=== PATIENT | female | born 1985 | race Caucasian/White ===

== ENCOUNTER → 2020-10-18 08:06 | Outpatient (CLI) | payer OTHER, SELFPAY ==
[2020-10-18 09:22] LABS: Cholesterol 160 mg/dL (140-199); HDL Cholesterol 60 mg/dL (40-60); LDL Cholesterol Calculated 88 mg/dL (<100); Triglycerides 62 mg/dL (35-150)
[2020-10-18 09:23] LABS: Hemoglobin A1C% w Est Avg Glu 5.6 % (4.0-6.0)
[2020-10-18 09:54] LABS: TSH w/ Reflex to FT4 2.28 uIU/mL (0.47-4.68)
== END ==
PROVIDERS: PCP Family Medicine; Referring Provider Family Medicine; Visit Provider Family Medicine
DX: Z00.00 Encounter for general adult medical examination without abnormal findings (principal)
CPT/HCPCS: 36415; 80061; 83036; 84443

== ENCOUNTER → 2020-10-30 08:21 | Outpatient (CLI) | payer OTHER, SELFPAY ==
[2020-11-01 17:36] LABS: ANA Screen, IFA Positive (.)
== END ==
PROVIDERS: PCP Family Medicine; Referring Provider Dermatology; Visit Provider Dermatology
DX: M32.9 Systemic lupus erythematosus, unspecified (principal); L20.9 Atopic dermatitis, unspecified
CPT/HCPCS: 36415; 86038

== ENCOUNTER → 2020-12-02 15:12 | Outpatient (CLI) | payer OTHER, SELFPAY ==
[2020-12-02 16:03] LABS: Erythrocyte Sedimentation Rate 5 MM/HR (0-20)
[2020-12-02 19:24] LABS: C-Reactive Protein Quant < 0.5 mg/dL (<1.0)
[2020-12-03 18:51] LABS: ANA Screen, IFA Positive (.)
== END ==
PROVIDERS: PCP Family Medicine; Referring Provider Dermatology; Visit Provider Dermatology
DX: L56.8 Other specified acute skin changes due to ultraviolet radiation (principal); M25.50 Pain in unspecified joint
CPT/HCPCS: 36415; 85651; 86038; 86140

== ENCOUNTER → 2021-10-20 07:42 | Outpatient (CLI) | payer OTHER, SELFPAY ==
--- NOTE | 2021-10-20 | DI.US.S_ITS ---
PROCEDURE: US OB <= 14 WEEKS FETUS INDICATIONS: SIZE AND DATES OUTSIDE/PRIOR DATING DATA: Last menstrual period (LMP): August 19, 2021 LMP-based estimated date of delivery (TIA): May 26, 2022 First dating scan (date and location): October 20, 2021, [facility] Estimated date of delivery (TIA) from first dating scan: May 24, 2022 The calculations are made using the ultrasound TIA of May 24, 2022. TECHNIQUE: Real-time scanning was performed of the fetus and maternal pelvic organs, with image documentation. Endovaginal scanning was also performed to better visualize the fetus and maternal ovaries. COMPARISON: None. FINDINGS: Embryo: Single living intrauterine identified. Yolk sac and pole are identified. Leona-rump length measures 2.4 centimeters corresponding to ultrasound estimated gestational age of 9 weeks 1 day. Small 3.2 x 0.8 x 0.3 centimeter perigestational bleed. Heart rate: 169 beats per minute Maternal organs: Probable right corpus luteal cyst. IMPRESSION: 1. Single living intrauterine with ultrasound estimated gestational age of 9 weeks 1 day corresponding to ultrasound TIA of May 24, 2022. 2. Small 3.2 x 0.8 x 0.3 centimeter perigestational bleed. 3. Probable right corpus luteal cyst. Dictated by: Kim Martin MD, PhD on 10/20/2021 at 15:39 Approved by: Kim Martin MD, PhD on 10/20/2021 at 15:41
== END ==
PROVIDERS: PCP Student in an Organized Health Care Education/Training Program; Referring Provider Student in an Organized Health Care Education/Training Program; Visit Provider Student in an Organized Health Care Education/Training Program
DX: Z36.87 Encounter for antenatal screening for uncertain dates (principal); O20.9 Hemorrhage in early pregnancy, unspecified; Z3A.09 9 weeks gestation of pregnancy
CPT/HCPCS: 76801; 76817

== ENCOUNTER 2022-05-26 04:23 | Inpatient (IN) | payer OTHER, SELFPAY ==
[2022-05-26 04:28] VITALS: BP 119/78
--- NOTE | 2022-05-26 04:42 | P.HPOB_ITS ---
OB HPI Date/Time Date of admission: 05/26/22 Date Patient Seen: 05/26/22 Time Patient Seen: 04:43 History of Present Condition Chief complaint: waterbroke : 4 Para: 3 Estimated Date of Delivery: 05/26/22 Estimated Gestational Age (weeks): 40.0 Narrative: Steph Fabian is a 36 year old female here for evaluation of labor. Has been tanisha every 10-15 minutes since midnight. Had a strong contra ction and large gush of clear fluid right at 4am. Scant bloody show. Feeling comfortable, coping well. Contractions have not intensified since SROM. Uncomplicated PN care w/ CNM, transferred in from at 22wks. Desires low intervention . Both of her parents are present because her is home sick. History of Present care: good care, initiated at week # (5), number of visits (11) and pounds weight gain (35) Dating criteria: LMP confirmed by 1st trimester US Ultrasounds: normal 1st trimester US and normal mid trimester US Obstetrical complications: none Medical complications: none Preadmission Labs Blood type: A (+) positive -: Antibody screen: negative, GBS status: negative, HBsAG: negative, HIV: negative and RPR/VDLR: negative -: Chlamydia screen: not detected and Gonorrhea screen: not detected -: Rubella: immune and Varicella: immune HCT: 35.6 Cell-free DNA: Negative 1 hr GTT: 115 Prior (ies) History: 1: 06/20/2013, (vaginal delivery), Jocelynia, 40wks, 4 hr15 min labor, Epidural, Intact, Female, 7 lbs 11 oz, [place] 2: 02/10/2016, (vaginal delivery), Praneeth, 40wks, 5 hr20 min labor, Epidural, Intact, Male, 7 lbs 10 oz, [place] 3: 03/10/2019, (vaginal delivery), Jorge, 40wks, 5 hr30 min, Unmedicated, Intact, Male, 7 lbs 7 oz , [place] Evaluation Evaluation Baseline heart rate: 140 Variability: Moderate (11-25) monitor accelerations: Present Monitor Decelerations: Absent Contraction Frequency (minutes): 5 Uterine Contraction Intensity: Moderate Status: Category l Comments: CE deferred until contractions are stronger and more regular [facility] Medical History Allergic conjunctivitis Chicken pox Chronic low back pain (~2005) Eczema Foot pain (~2016) Shoulder pain Family History Grandmother Breast cancer Social History Smoking Status: Never smoker Meds Home Medications and Allergies Home Medications Medication Instructions Recorded Confirmed Type 19 05/26/22 05/26/22 History cholecalciferol (vitamin D3) 25 05/26/22 05/26/22 History mcg (1,000 unit) capsule (Vitamin D3) Allergies Allergy/AdvReac Type Severity Reaction Status Date / Time No Known Drug Allergies Allergy Verified 06/30/21 14:41 Review of Systems Review of Systems ROS: Yes All systems reviewed with the patient and are negative except as otherwise documented OB Exam Presentation: vertex Objective Labs Result Diagrams: 05/26/22 04:55 Assessment and Plan Assessment and Plan Assessment and Plan narrative: A: Term Multipara Early labor SROM x 1 hour without sx of infection No indication for GBS prophylaxis Cat I FHR P: Admit, routine orders. May switch to IA. Labor suppport PRN. Expectant management of SROM, anticipate active labor soon.
[2022-05-26 05:31] LABS: Add Manual Diff / Slide Review NO; Basophils Absolute Auto 100 /uL (0-100); Basophils Percent Auto 0.5 % (0-2); Eosinophils Absolute Auto 200 /uL (0-450); Eosinophils Percent Auto 1.4 % (2-4); Hematocrit 36.4 % (36-46); Lymphocytes Absolute Auto 2700 /uL (1100-4500); Lymphocytes Percent Auto 20.3 % (25-40); Mean Corpuscular Hemoglobin 25.6 PG (26-34); Mean Corpuscular Volume 77.5 fL (80-100); Monocytes Absolute Auto 800 /uL (0-900); Monocytes Percent Auto 6.4 % (3-14); Neutrophils Absolute Auto 9400 /uL (1500-7000); Neutrophils Percent Auto 71.4 % (50-75); Platelet Count 252 X10^3/uL (150-400); Red Blood Cell Count 4.69 X10^6/uL (4.0-5.2); Red Cell Distribution Width 14.4 % (11.6-14.8); White Blood Cell Count 13.2 X10^3/uL (4.5-11.0)
[2022-05-26 05:43] LABS: COVID19 -Nasal RAPID Negative (Negative)
--- NOTE | 2022-05-26 08:33 | PM.OBPRVD ---
Labor & Delivery Delivery date: 05/26/22 Intrapartal Events: None Cervical ripening method: none Induction method: none Delivery monitor: external FHT Route of delivery: Episiotomy description: None L&D Laceration Description: None Quantitative Blood Loss: 50 Anesthesia Type: None Narrative: Steph labored well without augmentation or anesthesia. Was presumed to be complete with spontaneous urge to push.Steady descent of vertex noted over 3 contractions w/ reassuring FHR by IA. NSVB of a vigorous baby girl in JOANS position over an intact vagina and perineum. The was no nuchal cord and the shoulders delivered without additional maneuvers. 30 units of pitocin in 500mL LR was started at 250mL/hr for AMTSL. After cessation of pulsation, the cord was double clamped by YOGI and cut by Steph. Cord blood hold sample was collected. Gentle cord traction and maternal push led to spontaneous, Schultze delivery of an apparently intatc placenta, membranes and 3VC. Fundus immediately firm and bleeding minimal. QBL 50mL. Both mother and baby stable and skin to skin as I left the room. Baby 1: Infant gender: Female Presentation: vertex Position: Left Occiput Anterior Placenta delivery description: Spontaneous Cord Vessel Description: 3 Vessels score (1 min): 9 score (5 min): 9 weight: 3.584 kg Plan for aftercare: Routine care
[2022-05-26] MEDS: KETOROLAC 30 MG/ML VIAL IV (08:56)
[2022-05-26] MEDS: ACETAMINOPHEN 325 MG TABLET 650 MG PO ×3 (08:57→22:31)
[2022-05-26] MEDS: IBUPROFEN 600 MG TABLET PO ×2 (16:09→22:31)
[2022-05-27] MEDS: ACETAMINOPHEN 325 MG TABLET 650 MG PO ×2 (04:45→10:30)
[2022-05-27] MEDS: IBUPROFEN 600 MG TABLET PO ×2 (04:45→10:30)
--- NOTE | 2022-05-27 07:03 | P.DS_ITS ---
Discharge Providers Provider Date of admission: 05/26/22 04:23 Discharge Date: 05/27/22 Primary care physician: Bertha Solis MD Consults: 05/27/22 08:32 Consult to Chinese Medicine Practitioner Routine Comment: Discharge provider: Destiney Mejia CNM Summary Hospital Course Date Patient Seen: 05/27/22 Diagnoses: O80 Hospital Course: PPD1- Stable s/p NSVB yesterday with no lacerations. Ambulating, voiding, and breast feeding independently. Tolerating a general diet. Pain well controlled with ibuprofen and Tylenol. Peripartum Data Delivery Method: Natural Vaginal Laceration Description: None Episiotomy description: None 1: Gender: Female Disposition of : home Status at Discharge Cognitive/behavioral status at discharge: oriented and calm Functional status at discharge: independent ambulation Overall status at discharge: patient is back to baseline Time Spent with Patient Time attestation: Total time spent providing and/or coordinating discharge services: Time spent: Less than 30 minutes Objective Labs Result Diagrams: 05/26/22 04:55 Labs: Laboratory Results - last 24 hr 05/26/22 04:55 Blood Type A Positive Antibody Screen Negative Exam Vital Signs (past 8 hours): BP 108/57mmhg, HR 85bpm, RR 16/min, T 97.7F Temporal Other: Fundus firm @ U-2, lochia scant, perineum intact. Discharge Plan Discharge Plan Patient Disposition: Home Discharge orders & Medications Prescriptions: New ibuprofen 600 mg Tablet 600 mg PO Q6HR PRN (Reason: Pain, Mild (1-3)) 14 Days Qty: 60 0RF Continued cholecalciferol (vitamin D3) [Vitamin D3] 25 mcg (1,000 unit) capsule Label Comments: Take 1 capsule by mouth once a day 19 Follow up/Referrals: Bertha Solis MD [Primary Care Provider] - Destiney Mejia CNM [[facility] [employer] Laboratory Director] - (Follow-up 06/08/22 @ 3:00pm by Telehealth Follow-up 07/08 @ 9:45am in office) Diet/Activity/Treatments Diet: Diet as Tolerated and Regular Activity: pelvic rest x 6 weeks Skin/Wound/Dressing Care Report to your healthcare provider any signs of infection, such as:: chills, fever, increased pain, unusual drainage and unusual redness Visit Report/Discharge Packet Instructions: DI for Depression Discharge Data Primary Care Provider: Bertha Solis
[2022-05-27 08:09] VITALS: BP 110/72; PULSE 84; RESP 17; TEMP 36.3
== END 2022-05-27 12:10 | disposition home or self-care (01) | DRG 807 ==
PROVIDERS: Admitting Provider Nurse Practitioner Obstetrics & Gynecology; PCP Student in an Organized Health Care Education/Training Program; Referring Provider Nurse Practitioner Obstetrics & Gynecology; Visit Provider Nurse Practitioner Obstetrics & Gynecology
DX: O80 Encounter for full-term uncomplicated delivery (principal); Z37.0 Single live birth; Z3A.40 40 weeks gestation of pregnancy
CPT/HCPCS: 36415; 59050; 85025; 86850; 86900; 86901; 87635; C9803; G0379; J1885; S3620

== ENCOUNTER → 2023-11-20 08:27 | Outpatient (CLI) | payer OTHER, SELFPAY ==
[2023-11-20 09:21] LABS: Add Manual Diff / Slide Review NO; Basophils Absolute Auto 0 /uL (0-100); Basophils Percent Auto 0.6 % (0-2); Eosinophils Absolute Auto 300 /uL (0-450); Eosinophils Percent Auto 3.7 % (2-4); Hematocrit 43.1 % (36-46); Hemoglobin 14.6 g/dL (12.0-16.0); Lymphocytes Absolute Auto 2800 /uL (1100-4500); Lymphocytes Percent Auto 34.1 % (25-40); Mean Corpuscular HGB Conc 33.8 % (30-36); Mean Corpuscular Hemoglobin 28.8 PG (26-34); Mean Corpuscular Volume 85.2 fL (80-100); Monocytes Absolute Auto 400 /uL (0-900); Neutrophils Absolute Auto 4700 /uL (1500-7000); Neutrophils Percent Auto 56.6 % (50-75); Platelet Count 303 X10^3/uL (150-400); Red Blood Cell Count 5.06 X10^6/uL (4.0-5.2); Red Cell Distribution Width 13.3 % (11.6-14.8); White Blood Cell Count 8.2 X10^3/uL (4.5-11.0)
[2023-11-20 09:44] LABS: Alanine Aminotransferase 18 IU/L (<35); Albumin 4.3 g/dL (3.5-5.0); Albumin Globulin Ratio 1.4 (1.0-2.8); Alkaline Phosphatase 72 U/L (38-126); Aspartate Aminotransferase 25 IU/L (14-36); BUN Creatinine Ratio 23.9 (6-22); Bilirubin Total 0.5 mg/dL (0.2-1.3); Blood Urea Nitrogen 16 mg/dL (7-17); Calcium 8.9 mg/dL (8.4-10.2); Carbon Dioxide 28 mmol/L (22-32); Chloride 105 mmol/L (98-107); Cholesterol 152 mg/dL (140-199); Estimated Glomerular Filt Rate > 60 mL/min (>60); Globulin 3.1 g/dL (1.7-4.1); Glucose 90 mg/dL (70-100); HDL Cholesterol 58 mg/dL (40-60); HEMOLYSIS < 15 (0-50); LDL Cholesterol Calculated 85 mg/dL (<100); Potassium 4.3 mmol/L (3.4-5.1); Sodium 139 mmol/L (137-145); Total Protein 7.4 g/dL (6.3-8.2); Triglycerides 45 mg/dL (35-150)
[2023-11-20 10:05] LABS: TSH w/ Reflex to FT4 2.19 uIU/mL (0.47-4.68)
[2023-11-22 06:33] LABS: Apolipoprotein B 66 mg/dL (<90)
== END ==
PROVIDERS: PCP Family Medicine; Referring Provider Family Medicine; Visit Provider Family Medicine
DX: Z00.00 Encounter for general adult medical examination without abnormal findings (principal); L30.9 Dermatitis, unspecified; G89.29 Other chronic pain; D72.829 Elevated white blood cell count, unspecified; M54.50 Low back pain, unspecified
CPT/HCPCS: 80053; 80061; 82172; 84443; 85025

== ENCOUNTER 2024-01-07 13:45 | Outpatient (RCR) | payer OTHER, SELFPAY ==
--- NOTE | 2023-12-16 11:54 | PT.OIE ---
Current Diagnoses Other chronic pain (12/16/23) Pain in right shoulder (12/16/23) Pain in unspecified shoulder (12/16/23) Low back pain, unspecified (12/16/23) Past Medical History (Last Updated 12/13/23 @ 20:14 by Breana Palacios) Allergic conjunctivitis Chicken pox Chronic low back pain (~2006) Eczema (~2016) Foot pain (~2017) Leukocytosis Shoulder pain Visit Care Team Role Provider Type Antoine Mata MD Attending Provider Physician Family Provider Primary Care Provider Referring Provider Specialty: Family Practice Address: [address] [place] [address] Email: [email or web address] Physical Therapy Initial Evaluation PT-OP-A Visit Information Start: 12/16/23 11:35 Freq: Status: Active Protocol: Document 12/16/23 09:45 DCW (Rec: 12/16/23 11:45 DCW [id number]) Out-Patient Physical Therapy Visit Information Visit Information Visit Type Initial Evaluation Visit Start Time 09:45 Visit Stop Time 10:20 Visit Number 1 Number of SOIL SCIENCE TECHNICAL OFFICER Visits 0 Evaluation Information Evaluation Date 12/16/23 PT-OP-B Current Condition Start: 12/16/23 11:35 Freq: Status: Active Protocol: Document 12/16/23 09:45 DCW (Rec: 12/16/23 11:45 DCW [id number]) Current Condition History of Current Condition Onset Date Three week history Current Complaints Improving right shoulder pain History of Current Condition Pt is a 38 year old female presenting with a three week history of right shoulder pain . Pain began after lifting her 4-year old into the car, notes she felt a sharp pain. Pain was significantly worse for the first week, admits she wasn't using it much, but has been feeling a lot better recently, and has returned largely to normal function. Still bothers her a bit with lifting heavy objects (or her kids), pulling up her pants, or using her right hand to push off a chair. PT-OP-C Subjective Start: 12/16/23 11:35 Freq: Status: Active Protocol: Document 12/16/23 09:45 DCW (Rec: 12/16/23 11:45 DCW [id number]) OP-PT Subjective Patient Comments Patient Comments I thought about canceling my appointment, because it's doing so much better, but I ? ed if nothing else, I'd come in and get some exercises to help out. Patient Reported Progress Improving PT-OP-F Manual Assessment Start: 12/16/23 11:35 Freq: Status: Active Protocol: Document 12/16/23 09:45 DCW (Rec: 12/16/23 11:48 DCW [id number]) Manual Assessments Soft Tissue Assessment Soft Tissue Mobility Assessment Mild tone with tenderness to palpation 2/4: Pain with wincing R supraspinatus, Teres major Joint Mobility Assessment Joint Mobility Assessment Joint mobility WNL PT-OP-K Range of Motion Start: 12/16/23 11:35 Freq: Status: Active Protocol: Document 12/16/23 09:45 DCW (Rec: 12/16/23 11:48 DCW [id number]) Shoulder Goniometric Range of Motion Shoulder Right Active Shoulder ROM WFL Yes Testing Position Sitting Flexion 180 Abduction 180 External Rotation at 0 degrees Abduction 80 Internal Rotation Behind Back (text) T10 PT-OP-L Special Tests Start: 12/16/23 11:35 Freq: Status: Active Protocol: Document 12/16/23 09:45 DCW (Rec: 12/16/23 11:48 DCW [id number]) Special Tests Shoulder Special Tests Passive ER Rotator Cuff Test Results Negative Lift-Off Rotator Cuff Test Results Negative Perea Evaristo Impingement Test Results Mild pinch Right Grind Labrum Test Results Negative Drop Arm Rotator Cuff Test Results Negative Empty Can Test Results Negative Belly Press Test Results Negative Apprehension Test Test Results Negative Anterior Draw Test Results Negative AC Joint Compression Test Results Negative PT-OP-M Strength Start: 12/16/23 11:35 Freq: Status: Active Protocol: Document 12/16/23 09:45 DCW (Rec: 12/16/23 11:48 DCW [id number]) Shoulder Strength Shoulder Manual Muscle Testing Right Flexion 5 Normal Abduction (C5) 4+ Good+ External Rotation 5 Normal Internal Rotation 5 Normal PT-OP-Q Treatments Start: 12/16/23 11:35 Freq: Status: Active Protocol: Document 12/16/23 09:45 DCW (Rec: 12/16/23 11:45 DCW [id number]) Therapeutic Exercises Supine Exercises Horizontal Adduction Supine Exercise Name Horizontal Adduction Side bilateral Serratus punch Supine Exercise Name Serratus punch Side bilateral Standing Exercises Abduction Standing Exercise Name Shoulder abduction Side right Resistance Lv 2 Flexion Standing Exercise Name Shoulder flexion Side right Resistance Lv 2 Pec Stretch Standing Exercise Name Corner pec stretch Side bilateral PT-OP-T Assessment and Plan Start: 12/16/23 11:35 Freq: Status: Active Protocol: Document 12/16/23 09:45 DCW (Rec: 12/16/23 11:54 DCW [id number]) Physical Therapy Assessment Rehab Potential Rehabilitation Potential Excellent Evaluation Complexity Number of Personal Factors/Comorbidities 0 Number of Body Systems Impaired 1-2 Clinical Presentation at Evaluation Stable Impairments Impairments Functional Activities, Functional Mobility,Pain,Soft Tissue Mobility,Tone Goals Two Impairment Pt has slight increase in pain when pulling her pants up Prison Goal (LTG) Pt to report no pain when attempting to don/doff clothes in order to demonstrate improvement in functional mobility of right shoulder LTG Duration 01/25/24 One Impairment Pt does not have an appropriate home exercise program Short Term Goal (STG) Pt to be independent and compliant with an appropriate HEP STG Duration 01/07/24 Assessment Summary Assessment Pt assessment today largely unremarkable, special testing mostly negative, with some mild pinching with Perea- Evaristo impingement test. Per subjective reports and tenderness of supraspinatus, most likely injury was a mild strain of supraspinatus creating some edema/ inflammation in subacromial space, resulting in impingement. Pt has largely healed over the past three weeks, and is mostly asymptomatic at this time. Pt provided with hand-outs for HEP stretching/strengthening. Pt feels comfortable with this plan. Does have remaining follow-up visit in ~3 weeks, will return if she continues to be symptomatic or has questions regarding HEP, otherwise will cancel and be discharged at that time. Physical Therapy Plan Frequency and Duration Frequency of Treatment Every Other Week Plan of Care Start Date 12/16/23 Plan of Care End Date 01/25/24 Therapeutic Interventions Therapeutic Interventions Home Exercise Program,Joint Mobilizations,Manual Therapy, Patient/Caregiver Education, Self-Care/Home Management,Soft Tissue Mobilization, Therapeutic Activities, Therapeutic Exercises Next Visit Focus/Plan Next Note Type Treatment Note Next Visit Plan HEP review, STM as needed, strengthening
--- NOTE | 2023-12-16 11:54 | PT.OPPOC ---
Physical, Occupational & Speech Therapy At [facility] Current Diagnoses Other chronic pain (12/16/23) Pain in right shoulder (12/16/23) Pain in unspecified shoulder (12/16/23) Low back pain, unspecified (12/16/23) Visit Care Team Role Provider Type Antoine Mata MD Attending Provider Physician Family Provider Primary Care Provider Referring Provider Specialty: Family Practice Address: [address] [place] [address], [facility] Email: [email or web address] Plan Of Care PT-OP-T Assessment and Plan Start: 12/16/23 11:35 Freq: Status: Active Protocol: Document 12/16/23 09:45 DCW (Rec: 12/16/23 11:54 DCW [id number]) Physical Therapy Assessment Rehab Potential Rehabilitation Potential Excellent Evaluation Complexity Number of Personal Factors/Comorbidities 0 Number of Body Systems Impaired 1-2 Clinical Presentation at Evaluation Stable Impairments Impairments Functional Activities, Functional Mobility,Pain,Soft Tissue Mobility,Tone Goals Two Impairment Pt has slight increase in pain when pulling her pants up Freezer Machine Operator Goal (LTG) Pt to report no pain when attempting to don/doff clothes in order to demonstrate improvement in functional mobility of right shoulder LTG Duration 01/25/24 One Impairment Pt does not have an appropriate home exercise program Short Term Goal (STG) Pt to be independent and compliant with an appropriate HEP STG Duration 01/07/24 Assessment Summary Assessment Pt assessment today largely unremarkable, special testing mostly negative, with some mild pinching with Perea- Evaristo impingement test. Per subjective reports and tenderness of supraspinatus, most likely injury was a mild strain of supraspinatus creating some edema/ inflammation in subacromial space, resulting in impingement. Pt has largely healed over the past three weeks, and is mostly asymptomatic at this time. Pt provided with hand-outs for HEP stretching/strengthening. Pt feels comfortable with this plan. Does have remaining follow-up visit in ~3 weeks, will return if she continues to be symptomatic or has questions regarding HEP, otherwise will cancel and be discharged at that time. Physical Therapy Plan Frequency and Duration Frequency of Treatment Every Other Week Plan of Care Start Date 12/16/23 Plan of Care End Date 01/25/24 Therapeutic Interventions Therapeutic Interventions Home Exercise Program,Joint Mobilizations,Manual Therapy, Patient/Caregiver Education, Self-Care/Home Management,Soft Tissue Mobilization, Therapeutic Activities, Therapeutic Exercises Next Visit Focus/Plan Next Note Type Treatment Note Next Visit Plan HEP review, STM as needed, strengthening Plan of Care Dates Plan of Care Start Date 12/16/23 Plan of Care End Date 01/25/24 Electronically Signed by: Ravinder Ordaz, PT 12/16/23 [id number] If you are in agreement with this Plan of Care, please return a signed and dated copy. I have reviewed this Plan of Care and certify that the skilled therapy services above are required to meet the patient?s needs. Physician Signature Date Printed Name and Credentials Clinical Instructor Signature Printed Name and Credentials
--- NOTE | 2024-01-07 14:30 | PT.OTN ---
Current Diagnoses Other chronic pain (01/07/24) Pain in right shoulder (01/07/24) Pain in unspecified shoulder (01/07/24) Low back pain, unspecified (01/07/24) Physical Therapy Treatment Note PT-OP-A Visit Information Start: 12/16/23 11:35 Freq: Status: Active Protocol: Document 01/07/24 13:45 DCW (Rec: 01/07/24 14:29 DCW [id number]) Out-Patient Physical Therapy Visit Information Visit Information Visit Type Treatment Note Visit Start Time 13:45 Visit Stop Time 14:30 Visit Number 2 Number of DRYWALLER Visits 0 Evaluation Information Evaluation Date 12/16/23 PT-OP-B Current Condition Start: 12/16/23 11:35 Freq: Status: Active Protocol: Document 12/16/23 09:45 DCW (Rec: 12/16/23 11:45 DCW [id number]) Current Condition History of Current Condition Onset Date Three week history Current Complaints Improving right shoulder pain History of Current Condition Pt is a 38 year old female presenting with a three week history of right shoulder pain . Pain began after lifting her 4-year old into the car, notes she felt a sharp pain. Pain was significantly worse for the first week, admits she wasn't using it much, but has been feeling a lot better recently, and has returned largely to normal function. Still bothers her a bit with lifting heavy objects (or her kids), pulling up her pants, or using her right hand to push off a chair. PT-OP-C Subjective Start: 12/16/23 11:35 Freq: Status: Active Protocol: Document 01/07/24 13:45 DCW (Rec: 01/07/24 14:29 DCW [id number]) OP-PT Subjective Patient Comments Patient Comments Pt was doing well, but last week had a pretty bad flare-up , overall better now, but still sore with rotations. PT-OP-F Manual Assessment Start: 12/16/23 11:35 Freq: Status: Active Protocol: Document 12/16/23 09:45 DCW (Rec: 12/16/23 11:48 DCW [id number]) Manual Assessments Soft Tissue Assessment Soft Tissue Mobility Assessment Mild tone with tenderness to palpation 2/4: Pain with wincing R supraspinatus, Teres major Joint Mobility Assessment Joint Mobility Assessment Joint mobility WNL PT-OP-K Range of Motion Start: 12/16/23 11:35 Freq: Status: Active Protocol: Document 12/16/23 09:45 DCW (Rec: 12/16/23 11:48 DCW [id number]) Shoulder Goniometric Range of Motion Shoulder Right Active Shoulder ROM WFL Yes Testing Position Sitting Flexion 180 Abduction 180 External Rotation at 0 degrees Abduction 80 Internal Rotation Behind Back (text) T10 PT-OP-L Special Tests Start: 12/16/23 11:35 Freq: Status: Active Protocol: Document 12/16/23 09:45 DCW (Rec: 12/16/23 11:48 DCW [id number]) Special Tests Shoulder Special Tests Passive ER Rotator Cuff Test Results Negative Lift-Off Rotator Cuff Test Results Negative Perea Evaristo Impingement Test Results Mild pinch Right Grind Labrum Test Results Negative Drop Arm Rotator Cuff Test Results Negative Empty Can Test Results Negative Belly Press Test Results Negative Apprehension Test Test Results Negative Anterior Draw Test Results Negative AC Joint Compression Test Results Negative PT-OP-M Strength Start: 12/16/23 11:35 Freq: Status: Active Protocol: Document 12/16/23 09:45 DCW (Rec: 12/16/23 11:48 DCW [id number]) Shoulder Strength Shoulder Manual Muscle Testing Right Flexion 5 Normal Abduction (C5) 4+ Good+ External Rotation 5 Normal Internal Rotation 5 Normal PT-OP-Q Treatments Start: 12/16/23 11:35 Freq: Status: Active Protocol: Document 01/07/24 13:45 DCW (Rec: 01/07/24 14:29 DCW [id number]) Manual Therapy Treatment Soft Tissue Mobilization R shoulder Body Location Upper trap, r/c, levator, rhomboids Mobilization Type Strumming,Sustained Pressure, Trigger Point Release Joint Mobilizations GH Joint R GH Direction Inferior Grade III Body Position Supine Scapulothoracic Joint R Scapulothoracic Direction Lateral Grade IV Body Position Sidelying PT-OP-T Assessment and Plan Start: 12/16/23 11:35 Freq: Status: Active Protocol: Document 01/07/24 13:45 DCW (Rec: 01/07/24 14:29 DCW [id number]) Physical Therapy Assessment Impairments Impairments Functional Activities, Functional Mobility,Pain,Soft Tissue Mobility,Tone Goals Two Impairment Pt has slight increase in pain when pulling her pants up Relief Cook Goal (LTG) Pt to report no pain when attempting to don/doff clothes in order to demonstrate improvement in functional mobility of right shoulder LTG Duration 01/25/24 One Impairment Pt does not have an appropriate home exercise program Short Term Goal (STG) Pt to be independent and compliant with an appropriate HEP STG Duration 01/07/24 Assessment Summary Assessment Pt appears to have had a minor flare-up of her LH biceps tendon, recent pain along bicipital groove anterior right shoulder. Instructed to continue to exercises as tolerated, but not to push it or go into pain. Good response to joint mobs/STM. Follow-up in 2-3 weeks Physical Therapy Plan Frequency and Duration Frequency of Treatment Every Other Week Plan of Care Start Date 12/16/23 Plan of Care End Date 01/25/24 Therapeutic Interventions Therapeutic Interventions Home Exercise Program,Joint Mobilizations,Manual Therapy, Patient/Caregiver Education, Self-Care/Home Management,Soft Tissue Mobilization, Therapeutic Activities, Therapeutic Exercises Next Visit Focus/Plan Next Note Type Treatment Note Next Visit Plan HEP review, STM as needed, strengthening
--- NOTE | 2024-05-08 15:48 | PT.OPDS ---
Current Diagnoses Other chronic pain (01/07/24) Pain in right shoulder (01/07/24) Pain in unspecified shoulder (01/07/24) Low back pain, unspecified (01/07/24) Visit Care Team Role Provider Type Antoine Mata MD Attending Provider Physician Family Provider Primary Care Provider Referring Provider Specialty: Family Practice Address: [address] [place] [address] Email: [email or web address] Visit Number Visit Number 2 Discharge Summary PT-OP-B Current Condition Start: 12/16/23 11:35 Freq: Status: Active Protocol: Document 12/16/23 09:45 DCW (Rec: 12/16/23 11:45 DCW [id number]) Current Condition History of Current Condition Onset Date Three week history Current Complaints Improving right shoulder pain History of Current Condition Pt is a 38 year old female presenting with a three week history of right shoulder pain . Pain began after lifting her 4-year old into the car, notes she felt a sharp pain. Pain was significantly worse for the first week, admits she wasn't using it much, but has been feeling a lot better recently, and has returned largely to normal function. Still bothers her a bit with lifting heavy objects (or her kids), pulling up her pants, or using her right hand to push off a chair. PT-OP-C Subjective Start: 12/16/23 11:35 Freq: Status: Active Protocol: Document 01/07/24 13:45 DCW (Rec: 01/07/24 14:29 DCW [id number]) OP-PT Subjective Patient Comments Patient Comments Pt was doing well, but last week had a pretty bad flare-up , overall better now, but still sore with rotations. PT-OP-F Manual Assessment Start: 12/16/23 11:35 Freq: Status: Active Protocol: Document 12/16/23 09:45 DCW (Rec: 12/16/23 11:48 DCW [id number]) Manual Assessments Soft Tissue Assessment Soft Tissue Mobility Assessment Mild tone with tenderness to palpation 2/4: Pain with wincing R supraspinatus, Teres major Joint Mobility Assessment Joint Mobility Assessment Joint mobility WNL PT-OP-K Range of Motion Start: 12/16/23 11:35 Freq: Status: Active Protocol: Document 12/16/23 09:45 DCW (Rec: 12/16/23 11:48 DCW [id number]) Shoulder Goniometric Range of Motion Shoulder Right Active Shoulder ROM WFL Yes Testing Position Sitting Flexion 180 Abduction 180 External Rotation at 0 degrees Abduction 80 Internal Rotation Behind Back (text) T10 PT-OP-L Special Tests Start: 12/16/23 11:35 Freq: Status: Active Protocol: Document 12/16/23 09:45 DCW (Rec: 12/16/23 11:48 DCW [id number]) Special Tests Shoulder Special Tests Passive ER Rotator Cuff Test Results Negative Lift-Off Rotator Cuff Test Results Negative Perea Evaristo Impingement Test Results Mild pinch Right Grind Labrum Test Results Negative Drop Arm Rotator Cuff Test Results Negative Empty Can Test Results Negative Belly Press Test Results Negative Apprehension Test Test Results Negative Anterior Draw Test Results Negative AC Joint Compression Test Results Negative PT-OP-M Strength Start: 12/16/23 11:35 Freq: Status: Active Protocol: Document 12/16/23 09:45 DCW (Rec: 12/16/23 11:48 DCW [id number]) Shoulder Strength Shoulder Manual Muscle Testing Right Flexion 5 Normal Abduction (C5) 4+ Good+ External Rotation 5 Normal Internal Rotation 5 Normal PT-OP-T Assessment and Plan Start: 12/16/23 11:35 Freq: Status: Active Protocol: Document 05/08/24 15:47 DCW (Rec: 05/08/24 15:48 DCW [id number]) Physical Therapy Assessment Assessment Summary Assessment Pt canceled last scheduled visit, did not schedule any further follow-ups. Has now not been seen in more than four months, will require a new referral in order to return to skilled therapy. Pt will be discharged at this time. Physical Therapy Plan Discharge Physical Therapy Discharge Reasons No Longer Attending PT
== END 2024-05-11 14:24 | disposition home or self-care (01) ==
LOC: PHYS 13:45
PROVIDERS: Family Provider Family Medicine; PCP Family Medicine; Referring Provider Family Medicine; Visit Provider Family Medicine
DX: M25.511 Pain in right shoulder (principal); M25.519 Pain in unspecified shoulder; M54.50 Low back pain, unspecified; G89.29 Other chronic pain
CPT/HCPCS: 97110; 97140; 97161

== ENCOUNTER → 2025-03-01 15:05 | Outpatient (CLI) | payer OTHER, SELFPAY ==
[2025-03-01 15:48] LABS: Rheumatoid Factor < 8.6 IU/mL (<12.0)
[2025-03-01 17:52] LABS: Erythrocyte Sedimentation Rate 4 MM/HR (0-20)
[2025-03-05 14:11] LABS: CCP Antibodies IgG/IgA 0 units (0-19)
== END ==
PROVIDERS: Family Provider Family Medicine; PCP Family Medicine; Referring Provider Family Medicine; Visit Provider Physician Assistant
DX: M79.641 Pain in right hand (principal); M79.642 Pain in left hand; Z83.2 Family history of diseases of the blood and blood-forming organs and certain disorders involving the immune mechanism
CPT/HCPCS: 36415; 85651; 86038; 86200; 86430